=== PATIENT | female | born 1980 | race Hispanic/Latino ===

== ENCOUNTER 2024-02-09 16:18 | Emergency (ER) | payer SELFPAY ==
[2024-02-09 16:29] VITALS: BP 152/83; PULSE 77; RESP 20; TEMP 37.2; O2SAT 97
--- NOTE | 2024-02-09 16:29 | ED_ITS ---
HPI - URI/Sore Throat General Chief Complaint: Upper Respiratory Infection Stated Complaint: cough,hard to breathe when cough,back hurts,fever Time Seen by Provider: 02/09/24 16:29 Source: patient Mode of arrival: ambulatory Limitations: no limitations History of Present Illness HPI Narrative: Patient is a 43-year-old female who presents with 2 weeks of cough, intermittent fever, coughing fits causing shortness of breath and back pain. Patient denies any nausea, vomiting, diarrhea, sore throat, ear pain. Patient has taken [id number] meds symptom relief. Related Data Allergies Allergy/AdvReac Type Severity Reaction Status Date / Time No Known Allergies Allergy Verified 02/09/24 17:19 Review of Systems Review of Systems: All systems reviewed & are unremarkable except as noted in HPI and below Constitutional: Constitutional: Denies body ache(s), Denies chills, Denies fatigue, Reports fever(s), Denies headache(s), Denies malaise and Denies weakness Eyes: Eyes: Denies blurry vision, Denies itchy eyes and Denies loss of vision ENT: Denies otalgia, Denies headache(s), Reports nasal congestion, Denies sinus pain and Denies sore throat Cardiovascular: Cardiovascular: Denies chest pain, Denies irregular heart rhythm and Denies dyspnea Respiratory: Respiratory: Reports cough and Denies dyspnea Gastrointestinal: Gastrointestinal: Denies abdominal pain, Denies diarrhea, Denies nausea and Denies vomiting Musculoskeletal: Musculoskeletal: Reports back pain, Denies myalgias and Denies arthralgias Integumentary/Breasts: Skin/Breast: Denies pruritus and Denies rash Neurologic: Denies headache(s), Denies loss of vision and Denies weakness Psychiatric: Psychiatric: Reports no additional psychiatric complaints Endocrine: Endocrine: Denies fatigue Allergic/Immunologic: Allergic/Immunologic: Denies itchy eyes PMFSH Comments At time of signature, agree with nursing past medical, surgical, social and family history. There is no relevant family history pertinent to the presenting complaint. Exam Const: General: cooperative, healthy appearing, comfortable, no acute distress and well nourished Nutritional Appearance: well nourished Orientation/consciousness: patient oriented x3 Limitations: no limitations HENMT: Head: normal to inspection, normocephalic and atraumatic Ears: hearing grossly normal bilaterally, external ears normal, TM's normal bilaterally, EAC's normal and no periauricular adenopathy Face/Nose/Sinus: Normal external nose present, Abnormal mucous membranes and turbinates present erythematous bilateral and diffuse, normal facial exam, sinuses nontender and face symmetric Face and sinus: normal facial exam, sinuses nontender and face symmetric Mouth: Yes Normal oral and palatal mucosa present, Yes lip normal, Yes tongue normal, Yes Normal salivary glands and ducts present, Yes oropharynx normal and Yes moist mucous membranes Teeth and gingiva: dentition normal Throat: posterior oropharynx normal, tonsils normal and uvula midline Eyes: General: appearance normal, both eyes and all related structures Alignment and Position: alignment normal and position normal Periorbital: periorbital findings normal Eyelids: eyelids normal Pupils: Equal, round and reactive pupils present Neck: Neck: normal visual inspection, full ROM, no lymphadenopathy and supple Chest: Chest palpation & inspection: normal inspection of the chest and normal palpation of entire chest wall Resp: Effort & Inspection: normal respiratory effort, able to speak in com plete sentences and Actively coughing actively coughing Auscultation: crackles (course) diffuse, no rales, no rhonchi and no wheezes Cardio: Rate: regular rate Rhythm: regular rhythm Heart sounds: S1 normal heart sound present and S2 normal heart sound present GI: Inspection: normal to inspection Skin: General skin exam: normal color and no rashes or lesions noted Neuro: General: patient oriented x3 and moves all extremities Cranial nerves: Yes Equal, round and reactive pupils present Speech: normal speech Gait exam (Neuro): Normal gait present Extrem: General: normal to inspection, full ROM and no edema Psych: Appearance: grossly normal and well kempt Mental Status: mental stat us grossly normal Speech and movement: Normal speech and movement present Affect: normal affect Attitude: cooperative Thought process: Normal thought process present Course Course Emergency Course: Discharge instructions reviewed with patient, as well as provided in writing per nursing staff. The instructions also include specific and strict return/GO TO THE ER as well as f/u information. All questions have been answered, and the patient deny any further questions with discharge and discharge plan. Portions of this record may have been created with voice recognition software Level of Care: Express Care Visit Vital Signs Vital signs: Vital Signs Temperature 37.2 C 02/09/24 16:29 Pulse Rate 77 02/09/24 16:29 Respiratory Rate 20 02/09/24 16:29 Blood Pressure 152/83 H 02/09/24 16:29 Pulse Oximetry 97 02/09/24 16:29 Oxygen Delivery Room Air 02/09/24 16:29 Temperature 37.2 C 02/09/24 16:29 Pulse Rate 77 02/09/24 16:29 Respiratory Rate 20 02/09/24 16:29 Blood Pressure 152/83 H 02/09/24 16:29 Pulse Oximetry 97 02/09/24 16:29 Oxygen Delivery Room Air 02/09/24 16:29 Reviewed MDM - URI/Sore Throat MDM Narrative Medical decision making narrative: Pt well hydrated appearing, in no respiratory distress, hemodynamically stable. Recommend supportive care. The patient is stable at time of discharge the clinical impression was discussed and the patient was given the opportunity to ask questions, which were addressed as completely as possible given the information available at present. Anticipatory guidance and return to care precautions were discussed and the importance of primary care follow-up was stressed and encouraged. The patient voiced understanding of the plan, indications to return, and the need for follow-up. Differential diagnosis considered: Brown virus, strep pharyngitis, allergic rhinitis, upper respiratory tract infection, sinusitis, rhinosinusitis, nasopharyngitis. viral pharyngitis, otitis media, otitis externa, otitis effusion, foreign body, cerumen impaction, viral syndrome, and influenza.? Exam findings show no acute concerns or changes; patient is non-toxic appearing and is in no distress.? Patient is appropriate for outpatient treatment and follow- up.? Medical Records Attestation: I reviewed the patient's medical records. Discharge Plan Discharge Clinical Impression: Acute purulent bronchitis Patient Disposition: Home, Self-Care Condition: Stable Instructions: Acute Bronchitis (ED) Additional Instructions: Take antibiotic as prescribed. Take steroids in the morning with food. Use Tessalon Perles as needed for cough. Other symptomatic treatments include: -Alternate Tylenol and Motrin per package directions for fever or pain. -Antihistamine medication such as Benadryl at night and Zyrtec/Claritin/Cherise during the day can help improve symptoms. -Use Flonase twice a day for 5 days then daily to help reduce the inflammation and dry up your sinuses. -You can also use Sudafed or Mucinex. Be sure to drink plenty of water with these medications at least 8 ounces with every dose and it is important to drink 8 to 10 glasses of water per day. Water is a natural decongestant -Eat and drink things that are easy to swallow, like tea or soup, or popsicles. -Oral rinses such as: Salt water gargles and/or may use topical anesthetic (eg. Chloraseptic spray) or lozenges to relieve dryness or throat pain). -Frequent hand washing or hand fundraiser is one of the best ways to prevent spread of infection. -Using a vaporizer or humidifier at night will also help thin secretions and help with coughing up phlegm. -Follow up with primary care provider in 3-5 days if condition is not improving - For new or worsening symptoms go directly to the nearest ER Your blood pressure was elevated above 120/80 today at Urgent Care. This puts you above the threshold for follow up visit with a primary care provider. High blood pressure does not usually cause any symptoms, however it may lead to kidney failure, stroke, heart disease just to name a few if untreated . Many people are anxious when seeing a provider or nurse. As a result, you are not diagnosed with hypertension at this time unless your blood pressure is persistently high at two office visits at least one week apart. Some things that can help lower blood pressure are lifestyle modifications, such as light exercise, decreased salt in diet, and weight loss. It is important to follow up with a PCP about this within 1 week. Scooba el antibi?amanda seg?n lo recetado. Scooba esteroides por la ma?july con la comida. Utilice Tessalon Perles seg?n sea necesario para la tos. Utilice un inhalador con espaciador seg?n sea necesario. Otros tratamientos sintom?ticos incluyen: -Alterne Tylenol y Motrin seg?n las instrucciones del paquete para la fiebre o el dolor. -Los medicamentos antihistam?nicos lance Benadryl por la noche y Zyrtec/Claritin/Cherise sonya el d?a pueden ayudar a mejorar los s?ntomas. -Use Flonase dos veces al d?a sonya 5 d?as y luego diariamente para ayudar a reducir la inflamaci?n y secar los senos nasales. -Tambi?n puedes utilizar Sudafed o Mucinex. Aseg?rese de beber chelsy agua con estos medicamentos, al menos 8 onzas con cada dosis y es importante beber de 8 a 10 vasos de agua por d?a. El agua es un descongestionante natural. -Coma y richard cosas que zulay f?ciles de tragar, lance t?, sopa o paletas heladas. -Enjuagues bucales lance: Gargarismos con agua salada y/o puede utilizar anest?sico t?sherice (p.ej. spray cloras?ptico) o pastillas para aliviar la sequedad o dolor de garganta). -Lavarse las michael con frecuencia o usar desinfectante para michael es irasema de las mejores formas de prevenir la propagaci?n de infecciones. -Usar un vaporizador o humidificador por la noche tambi?n ayudar? a diluir las secreciones y a toser con flema. -Seguimiento con el proveedor de atenci?n primaria en 3 a 5 d?as si la condici?n no mejora - Si los s?ntomas son nuevos o empeoran, vaya directamente a la lola de emergencias m?s cercana. Matta presi?n arterial se elev? por encima de 120/80 hoy en [facility]n [facility]. [place] lo coloca por encima del umbral para irasema visita de seguimiento con un proveedor de atenci?n primaria. La presi?n arterial pierce generalmente no causa nitin?n s?ntoma; sin embargo, si no se trata, puede provocar insuficiencia renal, derrame cerebral y enfermedades card?acas, solo por nombrar algunas. Muchas personas se sienten ansiosas cuando visitan a un proveedor o irasema enfermera. [place] resultado, no se le diagnostica hipertensi?n en komal momento a menos que matta presi?n arterial sea persistentemente pierce en dos visitas al consultorio con al menos irasema semana de diferencia. Algunas cosas que pueden ayudar a reducir la presi?n arterial son modificaciones en el estilo de edmar, lance ejercicio ligero, disminuci?n de la va en la dieta y p?rdida de peso. Es importante hacer un seguimiento de esto con un PCP dentro de 1 semana. Patient Language: Nicaraguan Prescriptions: New prednisone 20 mg tablet 40 mg PO DAILY 5 Days Qty: 10 0RF amoxicillin 875 mg tablet 875 mg PO Q12H 7 Days Qty: 14 0RF benzonatate 100 mg capsule 100 mg PO BID PRN (Reason: cough) Qty: 14 0RF albuterol sulfate 90 mcg/actuation HFA aerosol inhaler 2 puff inhalation QID PRN (Reason: shortness of breath or wheezing) Qty: 6.7 0RF (DME) Aerochamber MV Spacer See Rx Instructions .Route Qty: 1 0RF Rx Instructions: As directed Follow-up/Referrals: PHYSICIAN,DATA VIRTUALIZATION CONSULTANT [Primary Care Provider] - Herbert Rodgers MD [Physician] - 3 Days Time of Disposition: 17:51
== END 2024-02-09 18:02 | disposition home or self-care (01) ==
PROVIDERS: Emergency Provider Nurse Practitioner Family
DX: J20.9 Acute bronchitis, unspecified (principal)
CPT/HCPCS: 99203; G0463